=== PATIENT | male | born 1935 | race Caucasian/White ===

== ENCOUNTER → 2016-08-24 | Outpatient (CLI) | payer MEDICARE ==
[~2016-08-24] MED LIST: AC500T PO; AGM500T GT; AMIT10TA6 PO; AMOX1TAB12 PO; ASPI-860 PO; ATN50T PO; FLUT16SP NS; HCT25T PO; IBUP-30 PO; LEVO500T80 PO; LEVO750T39 PO; LISI5TAB14 PO; METAMUCIL1 PKT PO; METR500T17 PO; RANI150C4 PO; SPIR25TA PO
== END ==
LOC: LAB 11:00
PROVIDERS: ATTEND Urology
DX: C61 Malignant neoplasm of prostate (principal)
CPT/HCPCS: 36415; 84153